=== PATIENT | female | born 1995 | race African-American/Black ===

== ENCOUNTER 2018-06-12 08:43 | Emergency (ER) | payer SELFPAY ==
[2018-06-12] MEDS ORDERED: IBUPROFEN 600 MG TAB (09:34)
[2018-06-12] MEDS: IBUPROFEN 600 MG TAB PO (09:38)
== END 2018-06-12 09:42 | disposition home or self-care (01) ==
LOC: E/R 08:43
DX: B34.9 Viral infection, unspecified (principal)
CPT/HCPCS: 81025; 99283